=== PATIENT | female | born 1965 | race Caucasian/White ===

== ENCOUNTER 2016-06-17 12:54 | Emergency (ER) | payer OTHER ==
[2016-06-17 13:21] VITALS: BP 131/83; PULSE 77; RESP 16; TEMP 97.9; O2SAT 94
[2016-06-17] MEDS ORDERED: TDAP ADULT 0.5 ML INJ (BOOSTRIX) IM ONE (13:38)
--- NOTE | 2016-06-17 13:42 | UCPHY ---
H & P Patient Type: Established Chief Complaint Nursing Narrative: thumb right tip avulsion . Time Seen by Provider: 06/17/16 13:27 HPI/ROS: CHIEF COMPLAINT: Finger tip laceration HISTORY OF PRESENT ILLNESS: The patient is a 50-year-old female who comes to the Urgent Care complaining of a laceration to the tip of her right thumb. She chopped off all cutting carrots. She avulsed the fat pad. There is no nail or nail bed involvement. No bony exposure. Very superficial. REVIEW OF SYSTEMS: Constitutional: denies: chills, fever, recent illness, recent injury EENTM: denies: blurred vision, double vision, nose congestion Respiratory: denies: cough, shortness of breath Cardiac: denies: chest pain, irregular heart rate, lightheadedness, palpitations Gastrointestinal/Abdominal: denies: abdominal pain, diarrhea, nausea, vomiting, blood streaked stools Genitourinary: denies: dysuria, frequency, hematuria, pain Musculoskeletal: denies: joint pain, muscle pain Skin: See HPI Neurological: denies: headache, numbness, paresthesia, tingling, dizziness, weakness Hematologic/Lymphatic: denies: blood clots, easy bleeding, easy bruising Immunologic/allergic: denies: HIV/AIDS, transplant EXAM: GENERAL: Well-appearing, well-nourished and in no acute distress. HEAD: Atraumatic, normocephalic. EYES: Pupils equal round and reactive to light, extraocular movements intact, sclera anicteric, conjunctiva are normal. ENT: TMs normal, nares patent, oropharynx clear without exudates. Moist mucous membranes. NECK: Normal range of motion, supple without lymphadenopathy or JVD. LUNGS: Breath sounds clear to auscultation bilaterally and equal. No wheezes rales or rhonchi. HEART: Regular rate and rhythm without murmurs, rubs or gallops. ABDOMEN: Soft, nontender, normoactive bowel sounds. No guarding, no rebound. No masses appreciated. BACK: No CVA tenderness, no spinal tenderness, step-offs or deformities EXTREMITIES: Normal range of motion, no pitting or edema. No clubbing or cyanosis. NEUROLOGICAL: Cranial nerves II through XII grossly intact. Normal speech, normal gait. 5/5 strength, normal movement in all extremities, normal sensation PSYCH: Normal mood, normal affect. SKIN: See HPI Source: Patient - Personal History LMP (Females 10-55): 8-14 Days Ago - Medical/Surgical History Hx Asthma: No Hx Chronic Respiratory Disease: No Hx Diabetes: No Hx Cardiac Disease: No Hx Renal Disease: No Hx Cirrhosis: No Hx Alcoholism: No Hx HIV/AIDS: No Hx Splenectomy or Spleen Trauma: No Other PMH: PCP Maria E Jacobs. Tetanus ???NO - Family History Significant Family History: Hypertension - Social History Smoking Status: Never smoked Alcohol Use: Sober Drug Use: None Constitutional: Initial Vital Signs Temperature (C) 36.6 C 06/17/16 13:17 Heart Rate 77 06/17/16 13:17 Respiratory Rate 16 06/17/16 13:17 Blood Pressure 131/83 H 06/17/16 13:17 O2 Sat (%) 94 06/17/16 13:17 O2 Delivery Mode Room Air Allergies/Adverse Reactions: apple Allergy (Verified 06/17/16 13:21) peach Allergy (Verified 06/17/16 13:21) pear Allergy (Verified 06/17/16 13:21) tree nut [Nuts] Allergy (Verified 06/17/16 13:21) Home Medications: Medication Instructions Recorded Levothyroxine 06/28/15 Wellbutrin 100mg (RX) 06/28/15 Medical Decision Making ED Course/Re-evaluation: There is very superficial avulsion to the patient's distal left thumb. We will dress it with antibiotic ointment and Vaseline gauze. We discussed wound care. We will update her tetanus vaccine. She declines further workup or testing at this point. Differential Diagnosis: Partial list of the Differential diagnosis considered include but were not limited to; laceration, avulsion, infection and although unlikely based on the history and physical exam, I also considered foreign body, assault, fracture. I discussed these differential diagnoses and the plan with the patient as well as the usual and expected course. The patient understands that the diagnosis is provisional and that in medicine we are not always correct and that further workup is often warranted. Usual and customary warnings were given. All of the patient's questions were answered. The patient was instructed to return to the emergency department should the symptoms at all worsen or return, otherwise to followup with the physician as we discussed. - Data Points Medications Given: Discontinued Medications Diphtheria/Tetanus/Acell Pertussis (Boostrix) 0.5 ml IM .ONCE ONE Stop: 06/17/16 13:39 Last Admin: 06/17/16 13:50 Dose: 0.5 ml Departure - Departure Disposition: Home, Routine, Self-Care Clinical Impression: Laceration Condition: Fair Instructions: Skin Avulsion (ED) Referrals: Tosha Jacobs MD [Primary Care Provider] - As per Instructions - PQRS PQRS Measurement: Not applicable
== END 2016-06-17 14:03 | disposition home or self-care (01) ==
LOC: CED 12:54
DX: S61.011A Laceration without foreign body of right thumb without damage to nail, initial encounter (principal); W26.0XXA Contact with knife, initial encounter
CPT/HCPCS: 99214-PO; G0463-PO

== ENCOUNTER 2016-09-09 08:57 | Emergency (ER) | payer OTHER ==
[2016-09-09 09:10] VITALS: TEMP 97.9
[2016-09-09] MEDS ORDERED: HYOSCYAMINE SULFATE 0.125 MG TAB PO ONE (09:21)
[2016-09-09] MEDS ORDERED: LIDOCAINE 2% VISCOUS 15 ML UDCUP PO ONE (09:21)
[2016-09-09] MEDS ORDERED: MAG HYDROX/AL HYDROX/SIMETH 30 ML UDCUP PO ONE (09:21)
--- NOTE | 2016-09-09 09:24 | UCPHY ---
H & P Patient Type: Established Chief Complaint Nursing Narrative: "STABBING PAIN IN CHEST" WHEN EXHALING; NO RADIATION; CONSTANT; R ANT CHEST Time Seen by Provider: 09/09/16 09:12 HPI/ROS: CHIEF COMPLAINT: Right-sided chest pain HISTORY OF PRESENT ILLNESS: Patient is a 51-year-old female with no significant cardiac or pulmonary history comes to the Urgent Care complaining of chest pain to the right anterior aspect of her chest. It hurts with deep inspiration or exhalation. It also reproduced by movement of her right arm. It helps to push on the anterior chest and that relieved her pain. She states that it began last night and she thought that it was likely her chronic GERD symptoms. She took Zantac however and her symptoms did not improve. She has not had a fever. She denies shortness of breath. She did travel to [facility] last week. She also had a viral type infection about 2 weeks ago. REVIEW OF SYSTEMS: Constitutional: denies: chills, fever, recent illness, recent injury EENTM: denies: blurred vision, double vision, nose congestion Respiratory: See HPI denies: cough, shortness of breath Cardiac: See HPI denies: irregular heart rate, lightheadedness, palpitations Gastrointestinal/Abdominal: denies: abdominal pain, diarrhea, nausea, vomiting, blood streaked stools Genitourinary: denies: dysuria, frequency, hematuria, pain Musculoskeletal: denies: joint pain, muscle pain Skin: denies: lesions, rash, jaundice, bruising Neurological: denies: headache, numbness, paresthesia, tingling, dizziness, weakness Hematologic/Lymphatic: denies: blood clots, easy bleeding, easy bruising Immunologic/allergic: denies: HIV/AIDS, transplant EXAM: GENERAL: Well-appearing, overweight and in no acute distress. HEAD: Atraumatic, normocephalic. EYES: Pupils equal round and reactive to light, extraocular movements intact, sclera anicteric, conjunctiva are normal. ENT: TMs normal, nares patent, oropharynx clear without exudates. Moist mucous membranes. NECK: Normal range of motion, supple without lymphadenopathy or JVD. LUNGS: Breath sounds clear to auscultation bilaterally and equal. No wheezes rales or rhonchi. HEART: Regular rate and rhythm without murmurs, rubs or gallops. ABDOMEN: Soft, nontender, normoactive bowel sounds. No guarding, no rebound. No masses appreciated. BACK: No CVA tenderness, no spinal tenderness, step-offs or deformities EXTREMITIES: Normal range of motion, no pitting or edema. No clubbing or cyanosis. NEUROLOGICAL: Cranial nerves II through XII grossly intact. Normal speech, normal gait. 5/5 strength, normal movement in all extremities, normal sensation PSYCH: Normal mood, normal affect. SKIN: Warm, dry, normal turgor, no visible rashes or lesions. Source: Patient Exam Limitations: No limitations - Personal History LMP (Females 10-55): 1-7 Days Ago Current Tetanus/Diphtheria Vaccine: Unsure - Medical/Surgical History Hx Asthma: No Hx Chronic Respiratory Disease: No Hx Diabetes: No Hx Cardiac Disease: No Hx Renal Disease: No Hx Cirrhosis: No Hx Alcoholism: No Hx HIV/AIDS: No Hx Splenectomy or Spleen Trauma: No Other PMH: BACK SURGERY - Family History Significant Family History: No pertinent family hx - Social History Smoking Status: Never smoked Alcohol Use: Sober Drug Use: None Constitutional: Initial Vital Signs Temperature (C) 36.6 C 09/09/16 09:05 Heart Rate 80 09/09/16 09:05 Respiratory Rate 20 09/09/16 09:05 Blood Pressure 135/96 H 09/09/16 09:05 O2 Sat (%) 97 09/09/16 09:05 O2 Delivery Mode Room Air Allergies/Adverse Reactions: apple Allergy (Verified 09/09/16 09:10) peach Allergy (Verified 09/09/16 09:10) pear Allergy (Verified 09/09/16 09:10) tree nut [Nuts] Allergy (Verified 09/09/16 09:10) Home Medications: Medication Instructions Recorded Wellbutrin Sr 09/09/16 Medical Decision Making - Diagnostics EKG Interpretation: An EKG obtained and was read and documented in trace view. Please see trace view for full reading and report. Sinus rhythm, no acute ischemic changes Imaging Results: Imaging Impressions Chest X-Ray 09/09/16 09:22 Impression: Nothing acute radiographically. Imaging: I viewed and interpreted images myself ED Course/Re-evaluation: 10:30 a.m. we discussed the patient's lab work, imaging and EKG. She is reassured. She feels that this is likely pleurisy. It fits the description well. Also possibly musculoskeletal. Encouraged rest and anti-inflammatories. She understands and agrees with this plan. She declines further workup or testing at this time. She has an appointment with her primary doctor for follow -up next week. We also discussed indications for returning to the emergency department sooner. Differential Diagnosis: Partial list of the Differential diagnosis considered include but were not limited to; pleurisy, musculoskeletal pain and although unlikely based on the history and physical exam, I also considered of PE, pneumothorax, dissection, acute coronary disease, infection. I discussed these differential diagnoses and the plan with the patient as well as the usual and expected course. The patient understands that the diagnosis is provisional and that in medicine we are not always correct and that further workup is often warranted. Usual and customary warnings were given. All of the patient's questions were answered. The patient was instructed to return to the emergency department should the symptoms at all worsen or return, otherwise to followup with the physician as we discussed. - Data Points Laboratory Results: Laboratory Results 09/09/16 09:45 09/09/16 09:45 09/09/16 09/09/16 09/09/16 09:45 09:45 09:45 WBC 5.06 10^3/uL 10^3/uL (3.80-9.50) RBC 4.60 10^6/uL 10^6/uL (4.18-5.33) Hgb 15.4 g/dL g/dL (12.6-16.3) Hct 42.6 % % (38.0-47.0) MCV 92.6 fL fL (81.5-99.8) MCH 33.5 pg pg (27.9-34.1) MCHC 36.2 g/dL g/dL (32.4-36.7) RDW 12.0 % % (11.5-15.2) Plt Count 152 10^3/uL 10^3/uL (150-400) MPV 10.2 fL fL (8.7-11.7) Neut % (Auto) 57.9 % % (39.3-74.2) Lymph % (Auto) 32.0 % % (15.0-45.0) Lipscomb % (Auto) 6.5 % % (4.5-13.0) Eos % (Auto) 2.8 % % (0.6-7.6) Baso % (Auto) 0.4 % % (0.3-1.7) Nucleat RBC Rel Count 0.0 % % (0.0-0.2) Absolute Neuts (auto) 2.93 10^3/uL 10^3/uL (1.70-6.50) Absolute Lymphs (auto) 1.62 10^3/uL 10^3/uL (1.00-3.00) Absolute Monos (auto) 0.33 10^3/uL 10^3/uL (0.30-0.80) Absolute Eos (auto) 0.14 10^3/uL 10^3/uL (0.03-0.40) Absolute Basos (auto) 0.02 10^3/uL 10^3/uL (0.02-0.10) Absolute Nucleated RBC 0.00 10^3/uL 10^3/uL (0-0.01) Immature Gran % 0.4 % % (0.0-1.1) Immature Gran # 0.02 10^3/uL 10^3/uL (0.00-0.10) D-Dimer < 0.27 ug/mLFEU ug/mLFEU (0.00-0.50) Sodium 142 mEq/L mEq/L (134-144) Potassium 4.3 mEq/L mEq/L (3.5-5.2) Chloride 107 mEq/L mEq/L (97-110) Carbon Dioxide 22 mEq/l mEq/l (22-31) Anion Gap 13 mEq/L mEq/L (8-16) BUN 12 mg/dL mg/dL (7-23) Creatinine 0.7 mg/dL mg/dL (0.6-1.0) Estimated GFR > 60 Glucose 104 mg/dL H mg/dL (70-100) Calcium 9.1 mg/dL mg/dL (8.5-10.4) Troponin I < 0.012 ng/mL ng/mL (0-0.034) Medications Given: Discontinued Medications Al Hydroxide/Mg Hydroxide (Maalox Susp) 30 ml PO ONCE ONE Stop: 09/09/16 09:22 Last Admin: 09/09/16 09:49 Dose: 30 ml Hyoscyamine Sulfate (Levsin, Hyomax-Sl) 0.25 mg PO ONCE ONE Stop: 09/09/16 09:22 Last Admin: 09/09/16 09:49 Dose: 0.25 mg Lidocaine (Lidocaine 2% Viscous) 15 ml PO ONCE ONE Stop: 09/09/16 09:22 Last Admin: 09/09/16 09:49 Dose: 15 ml Departure - Departure Disposition: Home, Routine, Self-Care Clinical Impression: Chest pain Qualifiers: Chest pain type: chest pain on breathing Qualified Code(s): R07.1 - Chest pain on breathing Condition: Fair Instructions: Chest Pain (ED), Pleurisy (ED) Referrals: NONE *PRIMARY CARE P,. [Primary Care Provider] - As per Instructions - PQRS PQRS Measurement: Not applicable
--- NOTE | 2016-09-09 09:32 | CPEKG ---
Heart Rate: 66 RR Interval: 909 P-R Interval: 160 QRSD Interval: 88 QT Interval: 408 QTC Interval: 428 P Gladstone: 21 QRS Gladstone: 19 T Wave Gladstone: 2 EKG Severity - NORMAL ECG - EKG Impression: SINUS RHYTHM Electronically Signed By: Armand Adamson 09-Sep-2016 09:49:37
[2016-09-09 09:49] LABS: % IMMATURE GRANULYOCYTES 0.4 % (0.0-1.1); ABSOLUTE IMMATURE GRANULOCYTES 0.02 10^3/uL (0.00-0.10); ADD DIFF? NO; ADD MORPH? NO; ADD SCAN? NO; ATYPICAL LYMPHOCYTE FLAG 20 (0-99); FRAGMENT RBC FLAG 0 (0-99); HEMATOCRIT 42.6 % (38.0-47.0); HEMOGLOBIN 15.4 g/dL (12.6-16.3); LEFT SHIFT FLG 0 (0-99); LIPEMIA HEMOLYSIS FLAG 90 (0-99); MEAN CELL HEMOGLOBIN 33.5 pg (27.9-34.1); MEAN CELL HEMOGLOBIN CONCENTR. 36.2 g/dL (32.4-36.7); MEAN CELL VOLUME 92.6 fL (81.5-99.8); MEAN PLATELET VOLUME 10.2 fL (8.7-11.7); PLATELET CLUMPS FLAG 0 (0-99); PLATELET COUNT 152 10^3/uL (150-400)
[2016-09-09 10:00] LABS: ANION GAP 13 mEq/L (8-16); CALCIUM 9.1 mg/dL (8.5-10.4); CARBON DIOXIDE 22 mEq/l (22-31); CHLORIDE 107 mEq/L (97-110); CREATININE 0.7 mg/dL (0.6-1.0); GLOMERULAR FILTRATION RATE > 60; GLUCOSE 104 mg/dL (70-100); POTASSIUM 4.3 mEq/L (3.5-5.2); SODIUM 142 mEq/L (134-144)
[2016-09-09 10:13] LABS: TROPONIN I < 0.012 ng/mL (0-0.034)
[2016-09-09 10:43] VITALS: BP 121/79; PULSE 70; RESP 14; O2SAT 96
== END 2016-09-09 10:49 | disposition home or self-care (01) ==
LOC: CED 08:57
DX: R07.1 Chest pain on breathing (principal)
CPT/HCPCS: 71020-PO; 80048-PO; 84484-PO; 85025-PO; 85378-PO; 93010-PO; 99215-PO; G0463-PO